=== PATIENT | male | born 1965 | race Caucasian/White ===

== ENCOUNTER 2016-08-18 06:53 | Emergency (ER) | payer MEDICAID ==
[~2016-08-18] VITALS: Ht 180.3 cm; Wt 77.4 kg
[2016-08-18] MEDS ORDERED: LIDOCAINE HCL 1% 20ML VIAL (Pyxis) INJ MC ONE (07:45)
[2016-08-18] MEDS ORDERED: BACITRACIN ZINC OINT UDPKT TOP ONE (07:45)
[2016-08-18] MEDS ORDERED: TETANUS, DIPHTHERIA, PERTUSSIS VAC/PF 0.5ML (>7YR OLD) IM ONE (07:45)
[2016-08-18] MEDS ORDERED: KETOROLAC 60MG/2ML VIAL IM ONE (07:45)
[2016-08-18] MEDS ORDERED: CEFAZOLIN SODIUM 500MG/VIAL IM ONE (09:00)
[2016-08-18 10:22] VITALS: BP 139/87
== END 2016-08-18 10:25 | disposition home or self-care (01) ==
LOC: ER 07:16
DX: S62.661A Nondisplaced fracture of distal phalanx of left index finger, initial encounter for closed fracture (principal); S61.211A Laceration without foreign body of left index finger without damage to nail, initial encounter; W45.8XXA Other foreign body or object entering through skin, initial encounter; W20.8XXA Other cause of strike by thrown, projected or falling object, initial encounter; Y93.H2 Activity, gardening and landscaping; Y92.89 Other specified places as the place of occurrence of the external cause; Y99.8 Other external cause status
CPT/HCPCS: 29130; 73130; 90471; 90715; 96372; 99284; J0690; J1885; J3490; Z7610

== ENCOUNTER 2021-03-30 15:35 | Emergency (ER) | payer MEDICAID ==
[~2021-03-30] VITALS: Ht 167.6 cm; Wt 89.0 kg
[2021-03-30] MEDS ORDERED: KETOROLAC 15MG/ML VIAL IM ONE (19:30)
[2021-03-30] MEDS ORDERED: CYCLOBENZAPRINE 10MG TABLET PO ONE (19:30)
[2021-03-30] MEDS ORDERED: IBUP-2028 MT (19:32)
[2021-03-30] MEDS ORDERED: CYCL10TA7 MT (19:32)
[2021-03-30 19:41] VITALS: BP 184/114
== END 2021-03-30 20:00 | disposition home or self-care (01) ==
LOC: ER 15:35
DX: M54.30 Sciatica, unspecified side (principal)
CPT/HCPCS: 96372; 99283; J1885